=== PATIENT | female | born 1985 | race Two or more races ===

== ENCOUNTER 2021-05-02 20:43 | Emergency (ER) | payer MEDICAID, OTHER ==
[~2021-05-02] VITALS: Ht 157.5 cm; Wt 59.0 kg
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
--- NOTE | 2021-05-02 22:03 | NUR ---
URINE COLLCTED AND SENT TO LAB
--- NOTE | 2021-05-02 22:55 | NUR ---
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
[2021-05-02] MEDS ORDERED: TDAP [DIPH/PERTUSSIS/TET] 0.5 ML VIAL IM ONE ×2 (22:57→23:00)
[2021-05-03] MEDS ORDERED: HYDR-4209 PO (02:56)
[2021-05-03] MEDS ORDERED: CEPH500T PO (02:56)
--- NOTE | 2021-05-03 03:09 | NUR ---
Patient discharged to home in stable condition. Written and verbal after care instructions given. Patient verbalizes understanding of instruction.
[2021-05-03 03:13] VITALS: BP 116/77
== END 2021-05-03 03:14 | disposition home or self-care (01) ==
LOC: ER 20:45
DX: S62.637A Displaced fracture of distal phalanx of left little finger, initial encounter for closed fracture (principal); S62.605A Fracture of unspecified phalanx of left ring finger, initial encounter for closed fracture; Y09 Assault by unspecified means; Y92.89 Other specified places as the place of occurrence of the external cause; S01.01XA Laceration without foreign body of scalp, initial encounter; X99.2XXA Assault by sword or dagger, initial encounter
CPT/HCPCS: 73130-TC; 90715